=== PATIENT | male | born 1955 | race Caucasian/White ===

== ENCOUNTER 2017-09-29 22:13 | Inpatient (IN) | payer OTHER ==
[~2017-09-29] VITALS: Ht 167.6 cm; Wt 55.8 kg
--- NOTE | ~2017-09-29 | EKG ---
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
--- NOTE | ~2017-09-29 | 2DMMODE ---
[facility] [address] [place] [address] 2 D/M-MODE ECHOCARDIOGRAM Name: CORNELIA CANAS Room #: 212-P ADM IN M.R.#: [id number] Admission: 09/29/17 Attend Phys: Mary Zurita Discharge: Date of : 57 Date of Service: 09/30/17 1010 Report #: [id number] THIS REPORT FOR: //name// APPROVED REPORT Study performed: 09/30/2017 08:31:49 EXAM: Comprehensive 2D, Doppler, and color-flow Echocardiogram Patient Location: Bedside Room #: 212 Status: routine BSA: 1.60 HR: 67 bpm BP: 109/70 mmHg Other Information Study Quality: Adequate Indications Dyspnea Chest Pain Hypertension/HDD Atrial flutter. 2D Dimensions RVDd: 29.91 mm LVEF(%): 68.05 (>50%) IVSd: 11.41 (7-11mm) LVOT Diam: 17.55 (18-24mm) LVDd: 36.14 mm PWd: 11.21 (7-11mm) LVDs: 22.71 (25-40mm) Aortic Root: 29.82 mm IVC: 19.00 mm Forbes's LVEF: 68.05 % Volumes Left Atrial Volume (Systole) Single Plane 4CH: 30.20 mL Single Plane 2CH: 44.03 mL LA ESV Index: 27.00 mL/m2 Aortic Valve AoV Peak Akhil.: 1.20 m/s AO Peak Gr.: 5.71 mmHg LVOT Max P.07 mmHg LVOT Max V: 0.88 m/s TICO Vmax: 1.77 cm2 Pulmonary Valve [facility] [address] [place] [address] 2 D/M-MODE ECHOCARDIOGRAM Name: CORNELIA CANAS Room #: 212-P ADM IN M.R.#: [id number] Admission: 09/29/17 Attend Phys: Mary Zurita Discharge: Date of : 57 Date of Service: 09/30/17 1010 Report #: [id number] PV Peak Akhil.: 0.88 m/s PV Peak Gr.: 3.12 mmHg Tricuspid Valve TR Peak Akhil.: 2.85 m/s TR Peak Gr.: 32.52 mmHg PA Pressure: 43.00 mmHg Left Ventricle The left ventricle is normal size. There is normal left ventricular wall thickness. Left ventricular systolic function is hyperdynamic. LVEF is 65-70%. This study is not technically sufficient to allow evaluation of the LV diastolic function due to atrial flutter. Right Ventricle The right ventricle is normal size. The right ventricular systolic function is normal. Atria The left atrium size is normal. The right atrium size is normal. Aortic Valve The aortic valve is normal in structure. Trace aortic regurgitation. Mitral Valve The mitral valve is normal in structure. Trace mitral regurgitation. No evidence of mitral valve stenosis. Tricuspid Valve The tricuspid valve is normal in structure. There is trace tricuspid regurgitation. The right atrial pressure is estimated at 35 mmHg. There is moderate pulmonary hypertension. Pulmonic Valve The pulmonary valve is normal in structure. There is no pulmonic valvular regurgitation. Great Vessels The aortic root is normal in size. IVC is normal in size and collapses <50% with inspiration. Pericardium There is no pericardial effusion. <Conclusion> [facility] [address] [place] [address] 2 D/M-MODE ECHOCARDIOGRAM Name: CORNELIA CANAS Room #: 212-P ADM IN M.R.#: [id number] Admission: 09/29/17 Attend Phys: Mary Zurita Discharge: Date of : 57 Date of Service: 09/30/17 1010 Report #: [id number] The left ventricle is normal size. Left ventricular systolic function is hyperdynamic. LVEF is 65-70%. This study is not technically sufficient to allow evaluation of the LV diastolic function due to atrial flutter. The right ventricle is normal size. The left atrium size is normal. The right atrium size is normal. Trace aortic regurgitation. Trace mitral regurgitation. There is trace tricuspid regurgitation. The right atrial pressure is estimated at 35 mmHg. There is moderate pulmonary hypertension. There is no pericardial effusion. <ELECTRONICALLY SIGNED> By: Matthew Kirby MD, FACC 09/30/17 1010 1010 1010 Matthew Kirby MD, FAC /INF
--- NOTE | ~2017-09-29 | EKG ---
[address] [place] [address] ELECTROCARDIOGRAM REPORT Name: CORNELIA CANAS Room #: 212-P ADM IN M.R.#: [id number] Admission: 09/29/17 Attend Phys: Mary Cameron Discharge: Date of : 57 Report #: [id number] THIS REPORT FOR: //name// [facility] ED Test Date: 2017-09-29 Test Time: 22:18:26 Pat Name: CORNELIA CANAS Department: Room: [facility] Gender: M Senior Painter: FADUMO : 1955 Requested By: Jessica Vasquez Order Number: [id number] MD: Sebas Bo Measurements Intervals [place] Rate: 129 P: [place]: QRS: 56 QRSD: 140 T: -22 QT: 323 QTc: 474 Interpretive Statements Incomplete analysis due to missing data in precordial lead(s) Atrial flutter with predominant 2:1 AV block Right bundle branch block Missing lead(s): V6 Compared to ECG 10/16/2016 10:41:20 Recommend repeat tracing with all precordial leads Electronically Signed On 09-30-2017 8:11:51 MATCHBOOK ASSEMBLER by Sebas Bo [email or web address] <ELECTRONICALLY SIGNED> By: Sebas Bo MD, FAC 09/30/17 0811 17 Sebas Bo MD, [facility] /EPI
[~2017-09-29 22:13] MED LIST: LOPRESSOR25 PO
[2017-09-29 22:39] LABS: ABSOLUTE NEUTROPHILS 5.8 thou/uL (1.4-8.2); BASOPHILS 1.2 % (0.0-2.0); EOSINOPHILS 1.8 % (0.0-3.0); HEMATOCRIT 41.1 % (42.0-52.0); HEMOGLOBIN 14.1 gm/dL (14.0-18.0); LYMPHOCYTES 36.1 % (24.0-44.0); MANUAL DIFF NO; MCH 33.1 pg (26.0-34.0); MCHC 34.3 g/dL (28.0-37.0); MCV 96.3 fL (80.0-100.0); PLATELET COUNT 186 thou/uL (150-400); POLYS 54.9 % (36.0-66.0); RBC 4.26 mil/uL (4.50-6.00); RDW 13.4 % (10.5-14.5); WBC 10.6 thou/uL (4.0-11.0)
[2017-09-29 22:47] LABS: ANION GAP 9 mmol/L (7-16); BUN 5 mg/dL (7-18); CALCIUM 9.1 mg/dL (8.5-10.1); CHLORIDE 95 mmol/L (98-107); CO2 26 mmol/L (21-32); CREATININE 0.8 mg/dL (0.7-1.3); GLUCOSE 101 mg/dL (74-106); POTASSIUM 4.3 mmol/L (3.5-5.1); SODIUM 130 mmol/L (136-145)
[2017-09-29 22:53] LABS: APTT 30.1 Seconds (24.5-32.8); PROTIME 10.7 Seconds (9.3-11.4)
[2017-09-29 22:55] LABS: ALBUMIN 2.9 g/dL (3.4-5.0); ALKALINE PHOSPHATASE 42 U/L (46-116); DIRECT BILIRUBIN < 0.1 mg/dL (<0.1-0.3); SGOT 25 U/L (15-37); SGPT 23 U/L (30-65); TOTAL BILIRUBIN 0.3 mg/dL (<0.1-1.0); TROPONIN-I < 0.04 ng/mL (<0.06)
[2017-09-29 23:56] VITALS: BP 116/56
[2017-09-30 00:40] VITALS: BP 118/62; BP 140/80
[2017-09-30 04:15] VITALS: BP 104/61
[2017-09-30 04:18] LABS: HEMATOCRIT 39.3 % (42.0-52.0); HEMOGLOBIN 13.2 gm/dL (14.0-18.0); MCH 32.8 pg (26.0-34.0); MCHC 33.5 g/dL (28.0-37.0); MCV 97.7 fL (80.0-100.0); RBC 4.02 mil/uL (4.50-6.00); RDW 13.3 % (10.5-14.5); WBC 10.2 thou/uL (4.0-11.0)
[2017-09-30 04:21] LABS: CALCIUM 8.4 mg/dL (8.5-10.1); CREATININE 0.8 mg/dL (0.7-1.3); POTASSIUM 4.3 mmol/L (3.5-5.1)
[2017-09-30 07:26] VITALS: BP 109/70
[2017-09-30] MEDS ORDERED: CARDIZEM CD 18180 M3 PO (08:44)
[2017-09-30] MEDS ORDERED: COUMADIN 5 MG TA5 M1 PO (08:44)
[2017-09-30] MEDS ORDERED: LOPRESSOR50 PO (08:44)
[2017-09-30] MEDS ORDERED: ADULT LOW DOSE81 MG PO (08:44)
[2017-09-30 11:34] VITALS: BP 109/70
== END 2017-09-30 13:35 | disposition home or self-care (01) | DRG 309 ==
LOC: ER 22:13 → 2N 23:29 → EROBS 23:29 → 2N 09-30 00:33
PROVIDERS: Emergency Medicine; Nurse Practitioner Family
DX: I48.92 Unspecified atrial flutter (principal); E87.1 Hypo-osmolality and hyponatremia; I10 Essential (primary) hypertension; F43.10 Post-traumatic stress disorder, unspecified; E78.5 Hyperlipidemia, unspecified; I48.91 Unspecified atrial fibrillation; F17.200 Nicotine dependence, unspecified, uncomplicated; Z88.0 Allergy status to penicillin; Z88.2 Allergy status to sulfonamides; Z88.6 Allergy status to analgesic agent; Z71.6 Tobacco abuse counseling; Z91.14 Patient's other noncompliance with medication regimen